=== PATIENT | female | born 1965 | race Caucasian/White ===

== ENCOUNTER 2018-06-15 16:42 | Emergency (ER) | payer MEDICAID ==
[~2018-06-15] VITALS: Ht 154.9 cm; Wt 59.1 kg
[2018-06-15 17:27] VITALS: Ht 154.9 cm; Wt 59.1 kg
== END 2018-06-15 19:29 | disposition left against medical advice (07) ==
LOC: D.ER 16:42
DX: K13.79 Other lesions of oral mucosa (principal)